=== PATIENT | male | born 1950 | race Caucasian/White ===

== ENCOUNTER 2021-11-22 12:32 | Inpatient (IN) | payer MEDICARE ==
[2021-11-22] MEDS ORDERED: Albuterol 200 PUFF (6.7GM INHALER) ONE (13:43)
[2021-11-22] MEDS ORDERED: Furosemide 20 MG/2 ML VIAL ONE (13:44)
[2021-11-22] MEDS ORDERED: methylPREDNISolone Sod Succ/PF 125 MG/2 ML VIAL ONE (13:44)
[2021-11-22 13:46] LABS: #Basophils 0.1 thou/uL (0.0-0.2); #Eosinphils 0.1 thou/uL (0.0-0.7); #Lymphocytes 0.8 thou/uL (1.20-3.40); #Monocytes 1.3 thou/uL (0.11-0.59); %Basophils 0.4 % (0.0-1.0); %Eosinophils 0.4 % (0.0-10.0); %Monocytes 8.5 % (0.0-10.0); %Neutrophils 85.8 % (42.0-75.0); Hemoglobin 12.6 g/dL (14.0-18.0); Mean Corpuscular HGB CONC 33.5 g/dL (32.0-36.0); Mean Corpuscular Hemoglobin 30.3 pg (27.0-31.0); Mean Corpuscular Volume 90.6 fL (78.0-98.0); Mean Platelet Volume 6.2 fL (7.4-10.4); Platelet Count 329 thou/uL (130-400); RBC Distribution Width 14.1 % (11.5-14.5); Red Blood Cell (RBC) Count 4.14 mill/uL (4.70-6.10); White Blood Cell (WBC) Count 15.1 thou/uL (4.8-10.8)
[2021-11-22 14:03] LABS: ALT (SGPT) 63 U/L (8-55); AST (SGOT) 50 U/L (5-34); Albumin 3.2 g/dL (3.4-4.8); Alkaline Phosphatase 239 U/L (40-110); Anion Gap 12 mmol/L (10-20); BUN (Urea Nitrogen) 16 mg/dL (8.4-25.7); Bilirubin, Total 1.2 mg/dL (0.2-1.2); Calc. Creatinine Clearance 0 mL/min (70-130); Calcium 8.7 mg/dL (7.8-10.44); Carbon Dioxide 33 mmol/L (23-31); Chloride 83 mmol/L (98-107); Globulin 3.3 g/dL (2.4-3.5); Glucose 112 mg/dL (83-110); Potassium 5.3 mmol/L (3.5-5.1); Protein, Total 6.5 g/dL (5.8-8.1); Sodium 123 mmol/L (136-145)
[2021-11-22 14:05] LABS: INR-International Normal Ratio 3.3; PTT 54.8 sec (22.9-36.1); Prothrombin Time 34.6 sec (12.0-14.7)
[2021-11-22 14:59] LABS: SARS-CoV-2 NAA Rapid Test Not Detected (NotDetected)
[2021-11-22 15:23] LABS: Base Excess 6.9 mEq/L (-2.0 to +3.0); Calcium, Ionized (venous) 0.97 mmol/L (1.16-1.32); Chloride (VBG) 84 mmol/L (98-106); Hemoglobin (Hb) 13.2 g/dL (12.6-17.4); Potassium (VBG) 4.78 mmol/L (3.70-5.30); Sodium 118.8 mmol/L (133-146); pH (venous) 7.33 (7.32-7.43)
[2021-11-22 15:26] LABS: Actual Bicarbonate (HCO3v) 35 mEq/L (22-28)
[2021-11-22 15:27] LABS: Analyzer IN Cardio ER
[2021-11-22] MEDS ORDERED: Ondansetron ODT 4 MG TAB PO PRN (16:09)
[2021-11-22] MEDS ORDERED: Senokot S 8.6-50 MG TAB PO PRN (16:09)
[2021-11-22] MEDS ORDERED: Calcium Carbonate 500 MG ChewTAB PO PRN (16:09)
[2021-11-22] MEDS ORDERED: Albuterol Sulfate 2.5 mg/3 ml Neb EZPAP PRN (16:33)
[2021-11-22] MEDS ORDERED: Warfarin Sodium 5 MG TAB PO SCH (16:45)
[2021-11-22] MEDS ORDERED: Tolvaptan 15 MG TAB PO SCH (17:41)
[2021-11-22] MEDS ORDERED: cefTRIAXone\\ROCEPHIN 1 GM VIAL ONE (17:59)
[2021-11-22] MEDS ORDERED: TOLVAPTAN 30 MG TAB PO SCH (18:00)
[2021-11-22] MEDS: cefTRIAXone\\ROCEPHIN 1 GM in Sodium Chloride 0.9% 100 ML IVPB SCH (18:10)
[2021-11-22 19:49] LABS: Anion Gap 14 mmol/L (10-20); BUN (Urea Nitrogen) 15 mg/dL (8.4-25.7); Calc. Creatinine Clearance 0 mL/min (70-130); Calcium 8.8 mg/dL (7.8-10.44); Carbon Dioxide 31 mmol/L (23-31); Chloride 83 mmol/L (98-107); Glucose 100 mg/dL (83-110); Potassium 4.9 mmol/L (3.5-5.1); Sodium 123 mmol/L (136-145)
[2021-11-22 21:35] LABS: Potassium 5.4 mmol/L (3.5-5.1)
[2021-11-22 22:30] VITALS: BMI 25.8
[2021-11-22] MEDS: Famotidine/PF 20 mg/2ml Vial SLOW IVP SCH (22:33)
[2021-11-22 23:24] LABS: Bacteria/HPF None Seen HPF (None Seen); Bilirubin Negative (Negative); Blood, Urine Negative (Negative); Clarity Clear (Clear); Glucose, Urine (Dipstick) Normal (Negative); Ketone, Urine Negative (Negative); Leukocyte Negative Leu/uL (Negative); Nitrite Negative (Negative); Protein, Urine (Dipstick) Negative (Neg-Trace); RBC/HPF 0-3 HPF (0-3); Squamous Epithelial None Seen HPF (0-3); Urobilinogen Normal mg/dL (Less than 2); WBC/HPF 0-3 HPF (0-3); pH, Urine 5.5 (5.0-9.0)
[2021-11-22 23:25] LABS: Urine Culture Reflex No No
[2021-11-22] MEDS: Mometasone 200 MCG/Formoterol 5 MCG 120 PUFF INHALER INH SCH (23:53)
[2021-11-23 05:15] LABS: Hemoglobin 12.3 g/dL (14.0-18.0); Mean Corpuscular HGB CONC 32.5 g/dL (32.0-36.0); Mean Corpuscular Hemoglobin 29.8 pg (27.0-31.0); Mean Corpuscular Volume 91.5 fL (78.0-98.0); Mean Platelet Volume 6.3 fL (7.4-10.4); Platelet Count 310 thou/uL (130-400); RBC Distribution Width 14.1 % (11.5-14.5); Red Blood Cell (RBC) Count 4.13 mill/uL (4.70-6.10); White Blood Cell (WBC) Count 15.2 thou/uL (4.8-10.8)
[2021-11-23 05:23] LABS: Prothrombin Time 42.5 sec (12.0-14.7)
[2021-11-23 05:26] LABS: INR-International Normal Ratio 4.3
[2021-11-23 05:35] LABS: Anion Gap 11 mmol/L (10-20); BUN (Urea Nitrogen) 15 mg/dL (8.4-25.7); Band 6 % (5-11); Calc. Creatinine Clearance 106 mL/min (70-130); Calcium 8.9 mg/dL (7.8-10.44); Carbon Dioxide 35 mmol/L (23-31); Chloride 87 mmol/L (98-107); Glucose 154 mg/dL (83-110); Lymphocytes 3 % (21-51); MDiff Complete? YES; Monocytes 5 % (0-10); Neutrophil 86 % (42-75); Potassium 5.2 mmol/L (3.5-5.1); Sodium 128 mmol/L (136-145)
[2021-11-23] MEDS ORDERED: Metoprolol Tartrate 5 MG/5 ML VIAL IVP SCH (06:56)
[2021-11-23] MEDS: Mometasone 200 MCG/Formoterol 5 MCG 120 PUFF INHALER INH SCH ×2 (08:22→18:50)
[2021-11-23] MEDS: Digoxin 0.25 MG TAB PO SCH (08:58)
[2021-11-23] MEDS ORDERED: FLU VACC QS2021-22(65YR UP)/PF 240 MCG/0.7 ML SYRINGE IM ONE (09:00)
[2021-11-23] MEDS ORDERED: Warfarin Sodium 5 MG TAB PO SCH (09:00)
[2021-11-23] MEDS: Atorvastatin Calcium 10 MG TAB PO SCH (09:01)
[2021-11-23] MEDS: Famotidine/PF 20 mg/2ml Vial SLOW IVP SCH ×2 (09:01→21:37)
[2021-11-23] MEDS: Pantoprazole 40 MG VIAL IVP SCH (09:02)
[2021-11-23] MEDS: methylPREDNISolone Sod Succ/PF 125 MG/2 ML VIAL IVP SCH (09:02)
[2021-11-23] MEDS ORDERED: Digoxin 0.5 MG/2 ML AMP SLOW IVP SCH (15:15)
[2021-11-23] MEDS: Furosemide 40 MG/4 ML VIAL SLOW IVP SCH (16:21)
[2021-11-23] MEDS: cefTRIAXone\\ROCEPHIN 1 GM in Sodium Chloride 0.9% 100 ML IVPB SCH (16:23)
[2021-11-23] MEDS ORDERED: Carvedilol 3.125 MG TAB PO SCH (22:15)
[2021-11-24 05:34] LABS: Prothrombin Time 31.9 sec (12.0-14.7)
[2021-11-24] MEDS: Furosemide 40 MG/4 ML VIAL SLOW IVP SCH ×2 (05:39→14:52)
[2021-11-24 05:54] LABS: BUN (Urea Nitrogen) 19 mg/dL (8.4-25.7); Calc. Creatinine Clearance 93 mL/min (70-130); Calcium 8.5 mg/dL (7.8-10.44); Glucose 118 mg/dL (83-110); Magnesium 1.8 mg/dL (1.6-2.6)
[2021-11-24 06:03] LABS: Anion Gap 13 mmol/L (10-20); Carbon Dioxide 37 mmol/L (23-31); Chloride 87 mmol/L (98-107); Potassium 3.9 mmol/L (3.5-5.1); Sodium 133 mmol/L (136-145)
[2021-11-24] MEDS: Mometasone 200 MCG/Formoterol 5 MCG 120 PUFF INHALER INH SCH ×2 (07:47→19:03)
[2021-11-24] MEDS ORDERED: Carvedilol 3.125 MG TAB PO SCH ×2 (09:00→21:00)
[2021-11-24] MEDS ORDERED: Warfarin Sodium 2.5 MG TAB PO SCH (09:00)
[2021-11-24] MEDS: methylPREDNISolone Sod Succ/PF 125 MG/2 ML VIAL IVP SCH (10:02)
[2021-11-24] MEDS: Atorvastatin Calcium 10 MG TAB PO SCH (10:03)
[2021-11-24] MEDS: Digoxin 0.25 MG TAB PO SCH (10:03)
[2021-11-24] MEDS: Famotidine/PF 20 mg/2ml Vial SLOW IVP SCH (10:04)
[2021-11-24] MEDS: Empagliflozin 10 MG TAB PO SCH (10:05)
[2021-11-24] MEDS: Pantoprazole 40 MG VIAL IVP SCH (10:05)
[2021-11-24] MEDS ORDERED: Digoxin 0.125 MG TAB PO SCH (13:45)
[2021-11-24] MEDS: cefTRIAXone\\ROCEPHIN 1 GM in Sodium Chloride 0.9% 100 ML IVPB SCH (15:56)
[2021-11-24] MEDS ORDERED: Warfarin Sodium 3 MG TAB PO SCH (17:00)
[2021-11-25] MEDS ORDERED: Metoprolol Tartrate 5 MG/5 ML VIAL IVP SCH (02:00)
[2021-11-25 05:26] LABS: INR-International Normal Ratio 1.9; Prothrombin Time 22.4 sec (12.0-14.7)
[2021-11-25 05:27] LABS: PTT 49.5 sec (22.9-36.1)
[2021-11-25 05:34] LABS: BUN (Urea Nitrogen) 17 mg/dL (8.4-25.7); Calc. Creatinine Clearance 87 mL/min (70-130); Calcium 8.3 mg/dL (7.8-10.44); Glucose 85 mg/dL (83-110)
[2021-11-25 05:43] LABS: Anion Gap 11 mmol/L (10-20); Chloride 84 mmol/L (98-107); Potassium 3.6 mmol/L (3.5-5.1); Sodium 135 mmol/L (136-145)
[2021-11-25] MEDS: Furosemide 40 MG/4 ML VIAL SLOW IVP SCH (05:44)
[2021-11-25 05:54] LABS: Carbon Dioxide 44 mmol/L (23-31)
[2021-11-25] MEDS: Mometasone 200 MCG/Formoterol 5 MCG 120 PUFF INHALER INH SCH ×2 (07:37→18:31)
[2021-11-25] MEDS: methylPREDNISolone Sod Succ/PF 125 MG/2 ML VIAL IVP SCH (09:26)
[2021-11-25] MEDS: Digoxin 0.25 MG TAB PO SCH (09:26)
[2021-11-25] MEDS: Empagliflozin 10 MG TAB PO SCH (09:26)
[2021-11-25] MEDS: Atorvastatin Calcium 10 MG TAB PO SCH (09:26)
[2021-11-25 10:29] LABS: #Eosinphils 0.1 thou/uL (0.0-0.7); #Monocytes 1.1 thou/uL (0.11-0.59); #Neutrophils 9.7 thou/uL (1.40-6.50); %Eosinophils 0.4 % (0.0-10.0); %Lymphocytes 8.5 % (21.0-51.0); %Monocytes 9.5 % (0.0-10.0); %Neutrophils 81.6 % (42.0-75.0); Hemoglobin 11.2 g/dL (14.0-18.0); Mean Corpuscular HGB CONC 32.6 g/dL (32.0-36.0); Mean Corpuscular Volume 92.2 fL (78.0-98.0); Mean Platelet Volume 5.9 fL (7.4-10.4); Platelet Count 299 thou/uL (130-400); RBC Distribution Width 14.1 % (11.5-14.5); Red Blood Cell (RBC) Count 3.74 mill/uL (4.70-6.10); White Blood Cell (WBC) Count 11.9 thou/uL (4.8-10.8)
[2021-11-25] MEDS ORDERED: Potassium Chloride 20 MEQ TAB PO SCH (12:00)
[2021-11-25] MEDS ORDERED: acetaZOLAMIDE Sodium 500 MG in Sodium Chloride 0.9% 50 ML IVPB SCH (16:00)
[2021-11-25] MEDS ORDERED: Warfarin Sodium 3 MG TAB PO SCH ×2 (17:00)
[2021-11-25] MEDS: cefTRIAXone\\ROCEPHIN 1 GM in Sodium Chloride 0.9% 100 ML IVPB SCH (17:33)
[2021-11-26 05:07] LABS: INR-International Normal Ratio 1.3; Prothrombin Time 16.8 sec (12.0-14.7)
[2021-11-26 05:08] LABS: PTT 40.3 sec (22.9-36.1)
[2021-11-26 05:15] LABS: Anion Gap 12 mmol/L (10-20); BUN (Urea Nitrogen) 17 mg/dL (8.4-25.7); Calc. Creatinine Clearance 88 mL/min (70-130); Calcium 7.8 mg/dL (7.8-10.44); Carbon Dioxide 33 mmol/L (23-31); Chloride 90 mmol/L (98-107); Glucose 140 mg/dL (83-110); Potassium 3.8 mmol/L (3.5-5.1); Sodium 131 mmol/L (136-145)
[2021-11-26] MEDS ORDERED: Furosemide 40 MG/4 ML VIAL SLOW IVP SCH (06:00)
[2021-11-26] MEDS: Mometasone 200 MCG/Formoterol 5 MCG 120 PUFF INHALER INH SCH (07:07)
[2021-11-26] MEDS ORDERED: Potassium Chloride 20 MEQ TAB PO SCH (08:30)
[2021-11-26] MEDS: Empagliflozin 10 MG TAB PO SCH (10:20)
[2021-11-26] MEDS: methylPREDNISolone Sod Succ/PF 125 MG/2 ML VIAL IVP SCH (10:20)
[2021-11-26] MEDS: Atorvastatin Calcium 10 MG TAB PO SCH (10:20)
[2021-11-26] MEDS: Digoxin 0.25 MG TAB PO SCH (10:20)
[2021-11-26 11:29] VITALS: BP 121/60; TEMP 98
[2021-11-26] MEDS ORDERED: Warfarin Sodium 2.5 MG TAB PO SCH (17:00)
[2021-11-27] MEDS ORDERED: Furosemide 40 MG TAB PO SCH (07:30)
[2021-11-27] MEDS ORDERED: Potassium Chloride 20 MEQ TAB PO SCH (08:00)
[2021-11-27] MEDS ORDERED: Warfarin Sodium 5 MG TAB PO SCH (17:00)
== END 2021-11-26 14:19 | disposition home or self-care (01) | DRG 291 ==
LOC: ERS 12:32 → ERHOLD 15:28 → 2NO 22:08
PROVIDERS: ADMIT Internal Medicine; ATTEND Internal Medicine
PROC: 5A09357 Assistance with Respiratory Ventilation, Less than 24 Consecutive Hours, Continuous Positive Airway Pressure (ICD-10-PCS; principal; 2021-11-22)
DX: I11.0 Hypertensive heart disease with heart failure (principal); J96.02 Acute respiratory failure with hypercapnia; J96.21 Acute and chronic respiratory failure with hypoxia; I50.33 Acute on chronic diastolic (congestive) heart failure; J44.1 Chronic obstructive pulmonary disease with (acute) exacerbation; E87.3 Alkalosis; E87.1 Hypo-osmolality and hyponatremia; I48.19 Other persistent atrial fibrillation; Z20.822 Contact with and (suspected) exposure to COVID-19; I07.1 Rheumatic tricuspid insufficiency; E87.6 Hypokalemia; M06.9 Rheumatoid arthritis, unspecified; F17.210 Nicotine dependence, cigarettes, uncomplicated; T50.1X5A Adverse effect of loop [high-ceiling] diuretics, initial encounter; D64.9 Anemia, unspecified; E88.09 Other disorders of plasma-protein metabolism, not elsewhere classified; E87.5 Hyperkalemia; R74.01 Elevation of levels of liver transaminase levels; Z79.01 Long term (current) use of anticoagulants; Z79.899 Other long term (current) drug therapy; Z79.52 Long term (current) use of systemic steroids; Z88.8 Allergy status to other drugs, medicaments and biological substances; Z71.6 Tobacco abuse counseling; Z80.8 Family history of malignant neoplasm of other organs or systems; Z80.3 Family history of malignant neoplasm of breast
CPT/HCPCS: 36415; 71045; 76770; 80048; 80053; 80162; 81001; 82805; 83605; 83735; 83880; 83935; 84300; 84443; 84484; 85007; 85025; 85027; 85610; 85730; 87040; 87070; 87205; 93005; 93010; 93306; 93798; 94760; 96374; 96375; C9113; J0696; J1120; J1160; J1940; J2930; J3490; J7611; J7620; S0028; U0002

== ENCOUNTER 2021-12-22 11:53 | Inpatient (IN) | payer MEDICARE ==
[2021-12-22 12:44] LABS: #Basophils 0.1 thou/uL (0.0-0.2); #Eosinphils 0.3 thou/uL (0.0-0.7); #Lymphocytes 1.3 thou/uL (1.20-3.40); #Monocytes 1.5 thou/uL (0.11-0.59); #Neutrophils 8.4 thou/uL (1.40-6.50); %Basophils 0.9 % (0.0-1.0); %Lymphocytes 10.9 % (21.0-51.0); %Monocytes 12.7 % (0.0-10.0); %Neutrophils 72.6 % (42.0-75.0); Hemoglobin 12.9 g/dL (14.0-18.0); Mean Corpuscular HGB CONC 32.2 g/dL (32.0-36.0); Mean Corpuscular Hemoglobin 28.4 pg (27.0-31.0); Mean Corpuscular Volume 88.1 fL (78.0-98.0); Platelet Count 275 thou/uL (130-400); RBC Distribution Width 15.6 % (11.5-14.5); Red Blood Cell (RBC) Count 4.55 mill/uL (4.70-6.10); White Blood Cell (WBC) Count 11.5 thou/uL (4.8-10.8)
[2021-12-22 13:05] LABS: ALT (SGPT) 12 U/L (8-55); AST (SGOT) 13 U/L (5-34); Albumin 3.3 g/dL (3.4-4.8); Alkaline Phosphatase 98 U/L (40-110); Anion Gap 10 mmol/L (10-20); BUN (Urea Nitrogen) 17 mg/dL (8.4-25.7); Bilirubin, Total 0.7 mg/dL (0.2-1.2); Calc. Creatinine Clearance 0 mL/min (70-130); Calcium 8.8 mg/dL (7.8-10.44); Carbon Dioxide 34 mmol/L (23-31); Chloride 90 mmol/L (98-107); Globulin 3.5 g/dL (2.4-3.5); Glucose 72 mg/dL (83-110); Protein, Total 6.8 g/dL (5.8-8.1); Sodium 130 mmol/L (136-145)
[2021-12-22] MEDS ORDERED: methylPREDNISolone Sod Succ/PF 125 MG/2 ML VIAL ONE (14:39)
[2021-12-22] MEDS ORDERED: Magnesium 2 GM/50 ML BAG (IN WATER) ONE (14:39)
[2021-12-22] MEDS ORDERED: Albuterol 200 PUFF (6.7GM INHALER) ONE (15:59)
[2021-12-22] MEDS ORDERED: Acetaminophen 325 MG TAB PO PRN (16:03)
[2021-12-22] MEDS ORDERED: Ondansetron PF 4 MG/2 ML Vial IVP PRN (16:03)
[2021-12-22] MEDS ORDERED: cefTRIAXone\\ROCEPHIN 1 GM VIAL ONE (16:27)
[2021-12-22] MEDS: cefTRIAXone\\ROCEPHIN 1 GM in Sodium Chloride 0.9% 100 ML IVPB SCH (16:42)
[2021-12-22 17:28] LABS: Prothrombin Time 45.1 sec (12.0-14.7)
[2021-12-22 17:33] LABS: INR-International Normal Ratio 4.7
[2021-12-22 20:09] LABS: SARS-CoV-2 PCR by NAA Not Detected (NotDetected)
[2021-12-22] MEDS: methylPREDNISolone Sod Succ 40 MG VIAL IVP SCH (21:12)
[2021-12-22 21:22] VITALS: BMI 21.2
[2021-12-23] MEDS: methylPREDNISolone Sod Succ 40 MG VIAL IVP SCH ×3 (05:18→20:59)
[2021-12-23 05:23] LABS: #Lymphocytes 0.6 thou/uL (1.20-3.40); #Monocytes 0.4 thou/uL (0.11-0.59); %Basophils 0.1 % (0.0-1.0); %Eosinophils 0.1 % (0.0-10.0); %Lymphocytes 5.5 % (21.0-51.0); %Monocytes 3.4 % (0.0-10.0); %Neutrophils 90.8 % (42.0-75.0); Hemoglobin 11.7 g/dL (14.0-18.0); Mean Corpuscular HGB CONC 31.9 g/dL (32.0-36.0); Mean Corpuscular Hemoglobin 28.3 pg (27.0-31.0); Mean Corpuscular Volume 88.7 fL (78.0-98.0); Mean Platelet Volume 6.9 fL (7.4-10.4); Platelet Count 229 thou/uL (130-400); RBC Distribution Width 15.1 % (11.5-14.5); Red Blood Cell (RBC) Count 4.14 mill/uL (4.70-6.10)
[2021-12-23 05:26] LABS: Prothrombin Time 51.1 sec (12.0-14.7)
[2021-12-23 05:34] LABS: INR-International Normal Ratio 5.5
[2021-12-23 05:40] LABS: Anion Gap 10 mmol/L (10-20); BUN (Urea Nitrogen) 14 mg/dL (8.4-25.7); Calc. Creatinine Clearance 78 mL/min (70-130); Calcium 8.5 mg/dL (7.8-10.44); Carbon Dioxide 35 mmol/L (23-31); Chloride 91 mmol/L (98-107); Glucose 177 mg/dL (83-110); Potassium 4.2 mmol/L (3.5-5.1); Sodium 132 mmol/L (136-145)
[2021-12-23] MEDS: Leflunomide 10 mg Tablet PO SCH (08:51)
[2021-12-23] MEDS: Hydroxychloroquine Sulfate 200 MG TAB PO SCH (08:51)
[2021-12-23] MEDS: Digoxin 0.25 MG TAB PO SCH (08:51)
[2021-12-23] MEDS: Furosemide 40 MG TAB PO SCH (08:51)
[2021-12-23] MEDS ORDERED: Enoxaparin Sodium 40 MG/0.4 ML SYRINGE SC SCH (09:00)
[2021-12-23] MEDS ORDERED: guaiFENesin ER 600 MG TAB PO SCH (13:45)
[2021-12-23] MEDS: ALPRAZolam 0.25 MG TAB PO PRN ×2 (13:59→21:00)
[2021-12-23] MEDS ORDERED: Warfarin Sodium 5 MG TAB PO SCH (17:00)
[2021-12-23] MEDS: cefTRIAXone\\ROCEPHIN 1 GM in Sodium Chloride 0.9% 100 ML IVPB SCH (17:27)
[2021-12-23] MEDS ORDERED: Diltiazem HCl 125 MG, Admixture Fee 1 EACH in Sodium Chloride 0.9% 100 ML IVPB SCH (18:30)
[2021-12-23] MEDS: Ipratropium Oral Inhaler INH SCH ×2 (18:35→22:16)
[2021-12-23] MEDS: guaiFENesin ER 600 MG TAB PO SCH (20:58)
[2021-12-23] MEDS: Atorvastatin Calcium 40 MG TAB PO SCH (20:59)
[2021-12-23 22:42] LABS: Magnesium 2.1 mg/dL (1.6-2.6)
[2021-12-24] MEDS: Ipratropium Oral Inhaler INH SCH ×5 (01:36→19:09)
[2021-12-24 05:18] LABS: Prothrombin Time 40.7 sec (12.0-14.7)
[2021-12-24 05:26] LABS: Anion Gap 12 mmol/L (10-20); BUN (Urea Nitrogen) 15 mg/dL (8.4-25.7); Calc. Creatinine Clearance 78 mL/min (70-130); Calcium 8.6 mg/dL (7.8-10.44); Carbon Dioxide 33 mmol/L (23-31); Chloride 90 mmol/L (98-107); Glucose 154 mg/dL (83-110); Potassium 4.3 mmol/L (3.5-5.1); Sodium 131 mmol/L (136-145)
[2021-12-24 05:40] LABS: INR-International Normal Ratio 4.1
[2021-12-24] MEDS: methylPREDNISolone Sod Succ 40 MG VIAL IVP SCH ×2 (06:14→20:45)
[2021-12-24 06:51] LABS: Band 11 % (5-11); Lymphocytes 7 % (21-51); MDiff Complete? YES; Mean Corpuscular HGB CONC 31.3 g/dL (32.0-36.0); Mean Corpuscular Hemoglobin 27.7 pg (27.0-31.0); Mean Corpuscular Volume 88.4 fL (78.0-98.0); Monocytes 1 % (0-10); Neutrophil 81 % (42-75); Platelet Count 270 thou/uL (130-400); RBC Distribution Width 15.4 % (11.5-14.5); Red Blood Cell (RBC) Count 4.33 mill/uL (4.70-6.10); White Blood Cell (WBC) Count 17.9 thou/uL (4.8-10.8)
[2021-12-24] MEDS: guaiFENesin ER 600 MG TAB PO SCH ×2 (08:38→20:44)
[2021-12-24] MEDS: ALPRAZolam 0.25 MG TAB PO PRN ×2 (08:38→20:44)
[2021-12-24] MEDS: Hydroxychloroquine Sulfate 200 MG TAB PO SCH (08:38)
[2021-12-24] MEDS: Leflunomide 10 mg Tablet PO SCH (08:38)
[2021-12-24] MEDS: Furosemide 40 MG TAB PO SCH (08:38)
[2021-12-24] MEDS: Digoxin 0.25 MG TAB PO SCH (08:38)
[2021-12-24] MEDS ORDERED: Warfarin Sodium 2.5 MG TAB PO SCH (09:00)
[2021-12-24] MEDS: cefTRIAXone\\ROCEPHIN 1 GM in Sodium Chloride 0.9% 100 ML IVPB SCH (16:55)
[2021-12-24] MEDS: Atorvastatin Calcium 40 MG TAB PO SCH (20:44)
[2021-12-25] MEDS: Ipratropium Oral Inhaler INH SCH ×5 (02:58→13:52)
[2021-12-25 05:18] LABS: #Lymphocytes 0.6 thou/uL (1.20-3.40); #Monocytes 0.4 thou/uL (0.11-0.59); #Neutrophils 12.6 thou/uL (1.40-6.50); %Basophils 0.1 % (0.0-1.0); %Eosinophils 0.1 % (0.0-10.0); %Lymphocytes 4.3 % (21.0-51.0); %Monocytes 2.7 % (0.0-10.0); %Neutrophils 92.9 % (42.0-75.0); Hemoglobin 12.4 g/dL (14.0-18.0); Mean Corpuscular HGB CONC 31.8 g/dL (32.0-36.0); Mean Corpuscular Hemoglobin 27.9 pg (27.0-31.0); Mean Platelet Volume 6.7 fL (7.4-10.4); Platelet Count 260 thou/uL (130-400); RBC Distribution Width 15.5 % (11.5-14.5); Red Blood Cell (RBC) Count 4.44 mill/uL (4.70-6.10); White Blood Cell (WBC) Count 13.6 thou/uL (4.8-10.8)
[2021-12-25 05:22] LABS: Prothrombin Time 22.7 sec (12.0-14.7)
[2021-12-25 05:49] LABS: Anion Gap 12 mmol/L (10-20); BUN (Urea Nitrogen) 17 mg/dL (8.4-25.7); Calc. Creatinine Clearance 80 mL/min (70-130); Calcium 8.5 mg/dL (7.8-10.44); Carbon Dioxide 35 mmol/L (23-31); Chloride 90 mmol/L (98-107); Glucose 133 mg/dL (83-110); Potassium 4.8 mmol/L (3.5-5.1); Sodium 132 mmol/L (136-145)
[2021-12-25] MEDS: Furosemide 40 MG TAB PO SCH (08:47)
[2021-12-25] MEDS: ALPRAZolam 0.25 MG TAB PO PRN (08:47)
[2021-12-25] MEDS: Leflunomide 10 mg Tablet PO SCH (08:47)
[2021-12-25] MEDS: Digoxin 0.25 MG TAB PO SCH (08:47)
[2021-12-25] MEDS: guaiFENesin ER 600 MG TAB PO SCH (08:47)
[2021-12-25] MEDS: Hydroxychloroquine Sulfate 200 MG TAB PO SCH (08:47)
[2021-12-25] MEDS: methylPREDNISolone Sod Succ 40 MG VIAL IVP SCH (08:48)
[2021-12-25 11:41] VITALS: TEMP 97.6
[2021-12-25 16:55] VITALS: BP 131/58
[2021-12-25] MEDS ORDERED: Warfarin Sodium 5 MG TAB PO SCH (17:00)
== END 2021-12-25 16:55 | disposition home or self-care (01) | DRG 189 ==
LOC: ERS 11:53 → ERHOLD 16:01 → 2NO 18:28
PROVIDERS: ADMIT Internal Medicine; ATTEND Internal Medicine
DX: J96.01 Acute respiratory failure with hypoxia (principal); J44.1 Chronic obstructive pulmonary disease with (acute) exacerbation; I50.32 Chronic diastolic (congestive) heart failure; E87.1 Hypo-osmolality and hyponatremia; I48.21 Permanent atrial fibrillation; Z20.822 Contact with and (suspected) exposure to COVID-19; F32.A Depression, unspecified; R79.0 Abnormal level of blood mineral; I11.0 Hypertensive heart disease with heart failure; F17.210 Nicotine dependence, cigarettes, uncomplicated; M06.9 Rheumatoid arthritis, unspecified; Z88.8 Allergy status to other drugs, medicaments and biological substances; Z79.01 Long term (current) use of anticoagulants; Z79.899 Other long term (current) drug therapy
CPT/HCPCS: 36415; 71045; 71275; 80048; 80053; 83735; 83880; 84145; 84484; 85025; 85379; 85610; 87040; 93005; 93010; 94640; 96365; 96375; J0696; J2920; J2930; J3475; J3490; J7620; U0003; U0005